=== PATIENT | female | born 1930 | race Caucasian/White ===

== ENCOUNTER 2019-08-23 10:59 | Observation (INO) ==
[2019-08-23] MEDS ORDERED: Ipratropium/Albuterol Neb 3 ML IH ONE (11:14)
[2019-08-23 11:51] LABS: Bilirubin,Urine Negative (Negative); Blood,Urine Large (Negative); Clarity,Urine Turbid (Clear); Color,Urine Yellow (Yellow); Glucose,Urine (UA) Normal (Normal); Ketones,Urine Negative (Negative); Leukocyte Esterase,Urine Large (Negative); Nitrite,Urine Negative (Negative); Protein,Urine 100 mg/dL (Neg-Trace); Urobilinogen,Urine Normal (Normal)
[2019-08-23 11:53] LABS: Bacteria,Urine Many per hpf (None-Few); Hyaline Casts,Urine None Seen per lpf (None-Few); RBC,Urine 30-50 per hpf (0-3); Squamous Epithelial Cell,Urine Moderate per lpf (None-Few); WBC,Urine TNTC per hpf (0-3)
[2019-08-23 11:58] LABS: Bilirubin,Urine Negative (Negative); Blood,Urine Moderate (Negative); Clarity,Urine Turbid (Clear); Color,Urine Yellow (Yellow); Glucose,Urine (UA) Normal (Normal); Ketones,Urine Negative (Negative); Leukocyte Esterase,Urine Large (Negative); Nitrite,Urine Negative (Negative); Protein,Urine 100 mg/dL (Neg-Trace); Specific Gravity,Urine 1.021 (1.010-1.025); Urobilinogen,Urine Normal (Normal)
[2019-08-23 12:00] LABS: Bacteria,Urine Many per hpf (None-Few); Hyaline Casts,Urine None Seen per lpf (None-Few); RBC,Urine 15-30 per hpf (0-3); Squamous Epithelial Cell,Urine Few per lpf (None-Few); WBC,Urine TNTC per hpf (0-3)
[2019-08-23 12:02] LABS: Basophils % 0.4 %; Eosinophils % 0.3 %; Hematocrit 36.8 % (35.3-44.9); Hemoglobin 11.7 g/dL (11.5-15.4); Immature Granulocytes % 0.6 % (0-4); Lymphocytes # 0.5 K/mcL (0.6-4.6); Lymphocytes % 4.1 %; Mean Corpuscular HGB Conc 31.8 g/dL (31.6-35.5); Mean Corpuscular Hemoglobin 30.2 pg (28.0-33.3); Mean Corpuscular Volume 94.8 fL (83.0-100.0); Mean Platelet Volume 8.9 fL (9.4-12.4); Monocytes # 0.8 K/mcL (0.0-1.3); Platelet Count 265 K/mcL (140-400); Red Blood Count 3.88 M/mcL (3.82-4.97); Red Cell Distribution Width 14.8 % (11.5-14.5); Segmented Neutrophils % 87.6 %; White Blood Count 11.3 K/mcL (4.3-11.1)
[2019-08-23 12:25] LABS: Activated Partial Thrombo Time 30.2 Seconds (26.0-36.0); INR 1.1; Prothrombin Time 12.9 Seconds (9.4-12.1)
[2019-08-23 12:26] LABS: Albumin 3.7 g/dL (3.5-5.7); Albumin/Globulin Ratio 1.2 (1.1-2.2); Bilirubin,Direct 0.1 mg/dL (0.0-0.2); Bilirubin,Indirect 0.5 mg/dL (0.0-1.0); Bilirubin,Total 0.6 mg/dL (0.3-1.0); Calcium 9.2 mg/dL (8.6-10.3); Potassium 3.7 mEq/L (3.5-5.1); Total Protein 6.7 g/dL (6.4-8.9); Troponin I 0.08 ng/mL (< 0.04)
[2019-08-23] MEDS ORDERED: Aspirin 81 MG TAB.CHEW PO STA (12:26)
[2019-08-23] MEDS ORDERED: Isovue-370 500 ML BOTTLE IVP ONE (12:51)
[2019-08-23] MEDS ORDERED: 0.9 % Sodium Chloride 1,000 ML IVC SCH (13:00)
[2019-08-23] MEDS ORDERED: Naloxone 0.4 MG/ML INJ IVP PRN (16:15)
[2019-08-23] MEDS ORDERED: Ondansetron 4 MG/2 ML VIAL IVP PRN (16:15)
[2019-08-23] MEDS ORDERED: Furosemide 40 MG/4 ML VIAL IVP ONE (16:15)
[2019-08-23] MEDS ORDERED: Ipratropium/Albuterol Neb 3 ML IH PRN (17:33)
[2019-08-23] MEDS ORDERED: Azithromycin 500 MG in 0.9 % Sodium Chloride 250 ML IVPB SCH (18:00)
[2019-08-23] MEDS: MethylPREDNISolone 40 MG/ML VIAL IVP SCH (19:14)
[2019-08-23] MEDS: Ipratropium/Albuterol Neb 3 ML IH SCH (22:11)
[2019-08-24] MEDS: Ipratropium/Albuterol Neb 3 ML IH SCH ×3 (03:27→15:13)
[2019-08-24 04:31] LABS: Basophils % 0.1 %; Hematocrit 34.4 % (35.3-44.9); Immature Granulocytes % 0.4 % (0-4); Lymphocytes # 0.3 K/mcL (0.6-4.6); Lymphocytes % 3.7 %; Mean Corpuscular Hemoglobin 30.1 pg (28.0-33.3); Mean Platelet Volume 8.9 fL (9.4-12.4); Monocytes # 0.1 K/mcL (0.0-1.3); Monocytes % 1.2 %; Platelet Count 218 K/mcL (140-400); Red Blood Count 3.66 M/mcL (3.82-4.97); Red Cell Distribution Width 14.5 % (11.5-14.5); Segmented Neutrophils % 94.6 %; White Blood Count 7.4 K/mcL (4.3-11.1)
[2019-08-24 04:51] LABS: Calcium 8.8 mg/dL (8.6-10.3); Potassium 3.8 mEq/L (3.5-5.1)
[2019-08-24] MEDS: MethylPREDNISolone 40 MG/ML VIAL IVP SCH (06:01)
[2019-08-24 13:59] VITALS: BP 143/76
[2019-08-24] MEDS ORDERED: *HR* Heparin 5,000 UNIT/ML VIAL SQ SCH (14:00)
[2019-08-25] MEDS ORDERED: NIFEdipine XL (24 HR) 30 MG TAB.ER.24 PO SCH (09:00)
== END 2019-08-24 17:17 | disposition home health service (06) ==
LOC: 3ANU 10:59 → EMEROOARM 10:59 → SUATTDRO 15:00 → 3ANU 16:09
PROVIDERS: ADMIT Internal Medicine; ATTEND Pharmacist

== ENCOUNTER 2019-08-30 04:55 | Inpatient (IN) ==
[2019-08-30] MEDS ORDERED: Ipratropium/Albuterol Neb 3 ML IH ONE (05:05)
[2019-08-30] MEDS ORDERED: methylPREDNISolone 125 MG/2 ML VIAL IVP ONE (05:05)
[2019-08-30] MEDS ORDERED: *HR* LORazepam 2 MG/ML VIAL IVP ONE (05:32)
[2019-08-30] MEDS ORDERED: Azithromycin 500 MG in 0.9 % Sodium Chloride 250 ML IVPB ONE (05:41)
[2019-08-30] MEDS ORDERED: Piperacillin/Tazobactam 3.375 GM in 0.9 % Sodium Chloride Mini Bag 100 ML IVPB ONE (05:41)
[2019-08-30] MEDS ORDERED: 0.9 % Sodium Chloride 1,000 ML IVC ONE (05:42)
[2019-08-30 06:26] LABS: Basophils % 0.2 %; Eosinophils % 0.3 %; Hematocrit 32.8 % (35.3-44.9); Hemoglobin 10.3 g/dL (11.5-15.4); Immature Granulocytes % 0.3 % (0-4); Lymphocytes # 1.1 K/mcL (0.6-4.6); Lymphocytes % 9.1 %; Mean Corpuscular HGB Conc 31.4 g/dL (31.6-35.5); Mean Corpuscular Hemoglobin 30.8 pg (28.0-33.3); Mean Corpuscular Volume 98.2 fL (83.0-100.0); Neutrophils # 9.9 K/mcL (1.6-8.9); Platelet Count 200 K/mcL (140-400); Red Blood Count 3.34 M/mcL (3.82-4.97); Red Cell Distribution Width 14.6 % (11.5-14.5); Segmented Neutrophils % 82.1 %
[2019-08-30 06:29] LABS: VBG HCO3 27 mEq/L (21-27); VBG PCO2 43 mmHg (41-51); VBG PO2 219 mmHg (25-50)
[2019-08-30 06:43] LABS: Calcium 8.9 mg/dL (8.6-10.3); Potassium 3.2 mEq/L (3.5-5.1); Troponin I 0.04 ng/mL (< 0.04)
[2019-08-30] MEDS ORDERED: Ondansetron ODT 4 MG TAB.RAPDIS SL PRN ×2 (07:58→15:52)
[2019-08-30] MEDS: Ipratropium/Albuterol Neb 3 ML IH SCH ×5 (09:41→23:40)
[2019-08-30] MEDS ORDERED: NIFEdipine XL (24 HR) 30 MG TAB.ER.24 PO SCH (10:15)
[2019-08-30] MEDS ORDERED: methylPREDNISolone 125 MG/2 ML VIAL IVP SCH (12:00)
[2019-08-30] MEDS ORDERED: Racepinephrine Neb 0.5 ML VIAL IH ONE (12:34)
[2019-08-30 12:37] LABS: ABG Base Excess -1 mEq/L (-2 to 3); ABG HCO3 25 mEq/L (21-27); ABG Oxygen Saturation 98 % (95-98); ABG PCO2 45 mmHg (35-45); ABG PH 7.36 pH Units (7.32-7.45); ABG PO2 116 mmHg (85-104); ABG TCO2 26 mEq/L (20-26)
[2019-08-30] MEDS ORDERED: Piperacillin/Tazobactam 3.375 GM in 0.9 % Sodium Chloride Mini Bag 100 ML IVPB SCH ×2 (16:00)
[2019-08-30] MEDS ORDERED: Albuterol 2.5 MG/3 ML NEBULIZER IH ONE (16:58)
[2019-08-30] MEDS ORDERED: *HR* Propofol 200 MG/20 ML VIAL IVP ONE (17:23)
[2019-08-30] MEDS ORDERED: Lidocaine HCL 4 ML Topical Solution (Laryng-O-Jet Kit Sterile Pak) TP ONE (17:34)
[2019-08-30] MEDS ORDERED: *HR* Succinylcholine 200 MG/10 ML VIAL IVP ONE (17:34)
[2019-08-30] MEDS ORDERED: EPINEPHrine 1 MG/ML VIAL ONE (17:55)
[2019-08-30] MEDS ORDERED: *HR* Heparin 5,000 UNIT/ML VIAL SQ SCH (18:00)
[2019-08-30] MEDS ORDERED: *HR* FentaNYL (PF) 100 MCG/2 ML VIAL ONE (18:00)
[2019-08-30] MEDS ORDERED: *HR* Midazolam HCl 2 MG/2 ML VIAL ONE (18:36)
[2019-08-30] MEDS ORDERED: Lidocaine -MPF 4% 5 ML AMPUL ONE (18:44)
[2019-08-30] MEDS ORDERED: Artificial Tears SOLN 15 ML BOTTLE BOTH EYES PRN (18:58)
[2019-08-30] MEDS ORDERED: Dexmedetomidine HCl 400 MCG/100 ML MLS IVC ONE (19:28)
[2019-08-30] MEDS: methylPREDNISolone 125 MG/2 ML VIAL IVP SCH ×2 (19:31→23:32)
[2019-08-30] MEDS: *HR* Heparin 5,000 UNIT/ML VIAL SQ SCH (19:59)
[2019-08-30] MEDS: Dexmedetomidine HCl 400 MCG/100 ML MLS IVC SCH (20:00)
[2019-08-30] MEDS: Chlorhexidine Rinse 15 ML MOUTHWASH MM SCH (20:07)
[2019-08-30] MEDS: Artificial Tears SOLN 15 ML BOTTLE BOTH EYES SCH ×2 (20:07→23:33)
[2019-08-30] MEDS: Pantoprazole 40 MG VIAL IVP SCH (20:07)
[2019-08-30] MEDS: FentaNYL (PF) 1,000 MCG in 0.9 % Sodium Chloride 80 ML IVC SCH (20:29)
[2019-08-30 20:56] LABS: ABG Base Excess -1 mEq/L (-2 to 3); ABG HCO3 25 mEq/L (21-27); ABG Oxygen Saturation 100 % (95-98); ABG PCO2 45 mmHg (35-45); ABG PH 7.35 pH Units (7.32-7.45); ABG PO2 221 mmHg (85-104); ABG TCO2 26 mEq/L (20-26); Blood Gas Modality ASSIST CONTROL; Blood Gas VT 450 cc
[2019-08-31] MEDS: Piperacillin/Tazobactam 3.375 GM in 0.9 % Sodium Chloride Mini Bag 100 ML IVPB SCH ×4 (02:12→16:32)
[2019-08-31] MEDS: Artificial Tears SOLN 15 ML BOTTLE BOTH EYES SCH ×6 (03:44→23:35)
[2019-08-31] MEDS: Ipratropium/Albuterol Neb 3 ML IH SCH ×6 (03:48→23:31)
[2019-08-31 04:37] LABS: Hematocrit 28.2 % (35.3-44.9); Hemoglobin 8.8 g/dL (11.5-15.4); Immature Granulocytes % 0.5 % (0-4); Lymphocytes # 0.1 K/mcL (0.6-4.6); Lymphocytes % 1.5 %; Mean Corpuscular HGB Conc 31.2 g/dL (31.6-35.5); Mean Corpuscular Hemoglobin 29.4 pg (28.0-33.3); Mean Corpuscular Volume 94.3 fL (83.0-100.0); Mean Platelet Volume 9.1 fL (9.4-12.4); Monocytes # 0.2 K/mcL (0.0-1.3); Monocytes % 2.3 %; Platelet Count 150 K/mcL (140-400); Red Blood Count 2.99 M/mcL (3.82-4.97); Red Cell Distribution Width 14.4 % (11.5-14.5); Segmented Neutrophils % 95.7 %; White Blood Count 8.1 K/mcL (4.3-11.1)
[2019-08-31 04:39] LABS: Neutrophils # 7.8 K/mcL (1.6-8.9)
[2019-08-31 04:51] LABS: ABG Base Excess 1 mEq/L (-2 to 3); ABG HCO3 26 mEq/L (21-27); ABG Oxygen Saturation 99 % (95-98); ABG PCO2 40 mmHg (35-45); ABG PH 7.42 pH Units (7.32-7.45); ABG PO2 125 mmHg (85-104); ABG TCO2 27 mEq/L (20-26); Blood Gas Modality ASSIST CONTROL; Blood Gas VT 450 cc
[2019-08-31 04:54] LABS: Calcium 8.4 mg/dL (8.6-10.3); Magnesium 1.7 mg/dL (1.6-2.6); Phosphorous 3.4 mg/dL (2.7-4.5); Potassium 3.8 mEq/L (3.5-5.1)
[2019-08-31] MEDS: methylPREDNISolone 125 MG/2 ML VIAL IVP SCH (05:10)
[2019-08-31] MEDS: *HR* Heparin 5,000 UNIT/ML VIAL SQ SCH ×2 (05:10→15:21)
[2019-08-31 05:18] LABS: Platelet Estimate Normal (Normal)
[2019-08-31] MEDS: Pantoprazole 40 MG VIAL IVP SCH (06:59)
[2019-08-31] MEDS: Chlorhexidine Rinse 15 ML MOUTHWASH MM SCH ×2 (06:59→20:29)
[2019-08-31] MEDS: NIFEdipine XL (24 HR) 30 MG TAB.ER.24 PO SCH (07:24)
[2019-08-31] MEDS: Dexmedetomidine HCl 400 MCG/100 ML MLS IVC SCH ×3 (07:25→22:18)
[2019-08-31] MEDS ORDERED: Vancomycin 500 MG in 0.9 % Sodium Chloride Mini Bag 100 ML IVPB SCH ×2 (08:00)
[2019-08-31] MEDS: Azithromycin 500 MG in 0.9 % Sodium Chloride 250 ML IVPB SCH (08:22)
[2019-08-31] MEDS ORDERED: Azithromycin 500 MG in 0.9 % Sodium Chloride 250 ML IVPB SCH (09:00)
[2019-08-31] MEDS: FentaNYL (PF) 1,000 MCG in 0.9 % Sodium Chloride 80 ML IVC SCH (09:04)
[2019-08-31] MEDS: Dexamethasone 4 MG/ML VIAL IVP SCH ×3 (09:44→20:29)
[2019-08-31] MEDS ORDERED: D5% in Water 1,000 ML IVC PRN (10:24)
[2019-08-31] MEDS ORDERED: *HR* Dextrose 50 % in Water (Syg) 50 ML SYRINGE IVP PRN (10:24)
[2019-08-31] MEDS: Insulin LISPRO 300 UNITS/3 ML VIAL SQ SCH ×3 (11:27→23:36)
[2019-08-31] MEDS ORDERED: *HR* Midazolam HCl 2 MG/2 ML VIAL IVP PRN ×2 (18:09→18:10)
[2019-08-31] MEDS ORDERED: FENTANYL IVC SCH (23:45)
[2019-08-31] MEDS ORDERED: SODIUM CHLORIDE 0.9% IVC SCH (23:45)
[2019-09-01 00:42] LABS: Acinetobacter baumannii by PCR Not Detected (Not Detect); Candida albicans by PCR Not Detected (Not Detect); Candida glabrata by PCR Not Detected (Not Detect); Candida krusei by PCR Not Detected (Not Detect); Candida parapsilosis by PCR Not Detected (Not Detect); Candida tropicalis by PCR Not Detected (Not Detect); Enterobacter cloacae Cmplx PCR Not Detected (Not Detect); Enterobacteriaceae by PCR Not Detected (Not Detect); Enterococcus by PCR Not Detected (Not Detect); Escherichia coli by PCR Not Detected (Not Detect); Klebsiella oxytoca by PCR Not Detected (Not Detect); Klebsiella pneumoniae by PCR Not Detected (Not Detect); Proteus by PCR Not Detected (Not Detect); Pseudomonas aeruginosa by PCR Not Detected (Not Detect); Serratia marcescens by PCR Not Detected (Not Detect); Staphylococcus aureus by PCR Not Detected (Not Detect); Staphylococcus by PCR Not Detected (Not Detect); Streptococcus agalactiae(B)PCR Not Detected (Not Detect); Streptococcus by PCR Not Detected (Not Detect); Streptococcus pneumoniae PCR Not Detected (Not Detect); Streptococcus pyogenes (A) PCR Not Detected (Not Detect); blaKPC Carbapenem-Resist Gene Not Detected (Not Detect); mecA Methicillin-Resist Gene Not Detected (Not Detect); vanA/B Vancomycin-Resist Genes Not Detected (Not Detect)
[2019-09-01] MEDS ORDERED: Vancomycin 500 MG in 0.9 % Sodium Chloride Mini Bag 100 ML IVPB SCH (01:00)
[2019-09-01] MEDS: Dexamethasone 4 MG/ML VIAL IVP SCH ×4 (03:06→21:08)
[2019-09-01] MEDS: Artificial Tears SOLN 15 ML BOTTLE BOTH EYES SCH ×6 (03:07→21:09)
[2019-09-01] MEDS: Piperacillin/Tazobactam 3.375 GM in 0.9 % Sodium Chloride Mini Bag 100 ML IVPB SCH ×3 (03:07→14:44)
[2019-09-01] MEDS: Dexmedetomidine HCl 400 MCG/100 ML MLS IVC SCH ×4 (03:07→17:17)
[2019-09-01] MEDS: Ipratropium/Albuterol Neb 3 ML IH SCH ×4 (03:26→16:15)
[2019-09-01 05:07] LABS: ABG Base Excess 0 mEq/L (-2 to 3); ABG HCO3 26 mEq/L (21-27); ABG Oxygen Saturation 96 % (95-98); ABG PCO2 49 mmHg (35-45); ABG PH 7.34 pH Units (7.32-7.45); ABG PO2 90 mmHg (85-104); ABG TCO2 28 mEq/L (20-26); Blood Gas Modality AF; Blood Gas VT 380 cc
[2019-09-01] MEDS: Insulin LISPRO 300 UNITS/3 ML VIAL SQ SCH ×3 (05:11→17:18)
[2019-09-01] MEDS: *HR* Heparin 5,000 UNIT/ML VIAL SQ SCH ×2 (05:11→17:04)
[2019-09-01 06:23] LABS: Hematocrit 32.9 % (35.3-44.9); Hemoglobin 10.2 g/dL (11.5-15.4); Immature Granulocytes % 0.5 % (0-4); Lymphocytes # 0.2 K/mcL (0.6-4.6); Lymphocytes % 1.8 %; Mean Corpuscular Hemoglobin 29.9 pg (28.0-33.3); Mean Corpuscular Volume 96.5 fL (83.0-100.0); Monocytes # 0.5 K/mcL (0.0-1.3); Monocytes % 4.6 %; Platelet Count 179 K/mcL (140-400); Red Blood Count 3.41 M/mcL (3.82-4.97); Red Cell Distribution Width 14.4 % (11.5-14.5); Segmented Neutrophils % 93.1 %; White Blood Count 10.5 K/mcL (4.3-11.1)
[2019-09-01 06:30] LABS: INR 1.2; Prothrombin Time 13.5 Seconds (9.4-12.1)
[2019-09-01 06:39] LABS: Neutrophils # 9.8 K/mcL (1.6-8.9)
[2019-09-01 06:49] LABS: Albumin 3.3 g/dL (3.5-5.7); Albumin/Globulin Ratio 1.2 (1.1-2.2); Bilirubin,Total 0.3 mg/dL (0.3-1.0); Globulin 2.7 g/dL (2.4-3.5); Magnesium 2.4 mg/dL (1.6-2.6); Phosphorous 4.2 mg/dL (2.7-4.5)
[2019-09-01 07:10] LABS: Platelet Estimate Normal (Normal)
[2019-09-01] MEDS: NIFEdipine XL (24 HR) 30 MG TAB.ER.24 PO SCH (07:47)
[2019-09-01] MEDS: Azithromycin 500 MG in 0.9 % Sodium Chloride 250 ML IVPB SCH (07:50)
[2019-09-01] MEDS: Chlorhexidine Rinse 15 ML MOUTHWASH MM SCH (07:50)
[2019-09-01] MEDS: Pantoprazole 40 MG VIAL IVP SCH (07:50)
[2019-09-01] MEDS ORDERED: Aminoglycoside Consult 1 EACH MC ONE (09:49)
[2019-09-01] MEDS ORDERED: *HR* FentaNYL (PF) 100 MCG/2 ML VIAL IVP ONE (15:36)
[2019-09-01] MEDS ORDERED: Furosemide 40 MG/4 ML VIAL ONE (17:12)
[2019-09-01] MEDS ORDERED: Furosemide 40 MG/4 ML VIAL IVP ONE (17:12)
[2019-09-01] MEDS ORDERED: Atropine Sulfate 1% 40 DROP/2 ML BOTTLE SL PRN (18:07)
[2019-09-01] MEDS ORDERED: Morphine Sulfate 2 MG/ML SYRINGE IVP PRN (18:11)
[2019-09-01] MEDS ORDERED: *HR* Midazolam HCl 2 MG/2 ML VIAL IVP PRN (18:44)
[2019-09-01] MEDS ORDERED: Artificial Tears SOLN 15 ML BOTTLE BOTH EYES PRN (18:44)
[2019-09-01] MEDS ORDERED: Ondansetron ODT 4 MG TAB.RAPDIS SL PRN (18:44)
[2019-09-01] MEDS ORDERED: Chlorhexidine Rinse 15 ML MOUTHWASH MM SCH (21:00)
[2019-09-01] MEDS: Morphine Sulfate 2 MG/ML SYRINGE IVP PRN ×2 (21:15→23:43)
[2019-09-02] MEDS: Atropine Sulfate 1% 40 DROP/2 ML BOTTLE SL PRN ×2 (00:51→04:05)
[2019-09-02] MEDS ORDERED: *HR* LORazepam 0.5 MG TABLET PO PRN (02:03)
[2019-09-02] MEDS: Morphine Sulfate 2 MG/ML SYRINGE IVP PRN ×4 (02:15→14:22)
[2019-09-02] MEDS: Artificial Tears SOLN 15 ML BOTTLE BOTH EYES SCH ×2 (03:54→09:35)
[2019-09-02] MEDS: Dexamethasone 4 MG/ML VIAL IVP SCH ×2 (04:02→10:34)
[2019-09-02] MEDS ORDERED: Artificial Tears SOLN 15 ML BOTTLE BOTH EYES PRN (08:35)
[2019-09-02] MEDS ORDERED: Glycopyrrolate 0.2 MG/ML VIAL IVP ONE (13:21)
[2019-09-02] MEDS ORDERED: Scopolamine Patch 1.5 MG PATCH.TD72 TD SCH (13:30)
[2019-09-02] MEDS: Morphine Sulfate Oral CONC 10 MG/0.5 ML ORAL.SYG SL PRN (13:37)
[2019-09-02] MEDS: *HR* LORazepam Oral Conc 2 MG/ML PO PRN (14:23)
[2019-09-03] MEDS: Morphine Sulfate Oral CONC 10 MG/0.5 ML ORAL.SYG SL PRN ×3 (01:16→09:23)
[2019-09-03] MEDS: *HR* LORazepam Oral Conc 2 MG/ML PO PRN (05:30)
[2019-09-03] MEDS: Atropine Sulfate 1% 40 DROP/2 ML BOTTLE SL PRN ×2 (05:38→09:22)
[2019-09-03] MEDS ORDERED: Haloperidol Oral Conc 10 MG/5 ML UDC PO PRN (12:58)
[2019-09-03] MEDS ORDERED: *HR* LORazepam Oral Conc 2 MG/ML PO PRN (12:59)
[2019-09-04] MEDS: Morphine Sulfate Oral CONC 10 MG/0.5 ML ORAL.SYG SL PRN (00:47)
[2019-09-04] MEDS ORDERED: Haloperidol Oral Conc 10 MG/5 ML UDC PO PRN (10:44)
[2019-09-04] MEDS ORDERED: Morphine Sulfate Oral CONC 10 MG/0.5 ML ORAL.SYG SL PRN (10:45)
[2019-09-04] MEDS ORDERED: Ipratropium/Albuterol Neb 3 ML IH PRN (10:52)
[2019-09-04] MEDS ORDERED: *HR* LORazepam Oral Conc 2 MG/ML PO PRN (10:53)
[2019-09-05 07:19] VITALS: BP 160/91
== END 2019-09-05 12:54 | disposition hospice, home (50) | DRG 853 ==
LOC: 2NENU 04:55 → EMEROOARM 04:55 → 2NENU 10:38 → ICNU 14:19 → SUATTDRO 17:33 → 2ANU 09-01 20:36
PROVIDERS: ADMIT Internal Medicine; ATTEND Internal Medicine
PROC: ENDOBRF (2019-08-30 17:30)

== ENCOUNTER 2019-09-30 12:38 | Inpatient (IN) ==
[2019-09-30] MEDS ORDERED: Bisacodyl 10 MG RECTAL SUPPOSITORY RC PRN (13:25)
[2019-09-30] MEDS ORDERED: polyethylene glycoL 3350 17 GM POWD.PACK PO PRN (13:35)
[2019-09-30] MEDS ORDERED: Ondansetron ODT 4 MG TAB.RAPDIS SL PRN (13:37)
[2019-09-30] MEDS ORDERED: Ipratropium/Albuterol Neb 3 ML IH PRN (13:38)
[2019-09-30] MEDS ORDERED: Ibuprofen 400 MG TABLET PO PRN (13:40)
[2019-09-30] MEDS ORDERED: Haloperidol Oral Conc 10 MG/5 ML UDC PO PRN (15:26)
[2019-09-30] MEDS ORDERED: Hyoscyamine SL 0.125 MG TAB.SUBL SL PRN (15:28)
[2019-09-30] MEDS: Morphine Sulfate Oral CONC 10 MG/0.5 ML ORAL.SYG SL PRN ×2 (16:49→22:45)
[2019-09-30] MEDS: Ipratropium/Albuterol Neb 3 ML IH SCH ×2 (17:03→21:58)
[2019-09-30] MEDS: Budesonide/Formoterol 80/4.5 1 PUFF INH IH SCH (21:58)
[2019-10-01] MEDS: *HR* LORazepam Oral Conc 2 MG/ML SL PRN ×2 (00:16→08:01)
[2019-10-01] MEDS: Ipratropium/Albuterol Neb 3 ML IH SCH ×2 (04:00→10:39)
[2019-10-01] MEDS: Morphine Sulfate Oral CONC 10 MG/0.5 ML ORAL.SYG SL PRN (04:10)
[2019-10-01 07:47] VITALS: BP 145/81
[2019-10-01] MEDS ORDERED: Multivit/Ca/Min/Fe/FA 1 TAB TABLET PO SCH (09:00)
[2019-10-01] MEDS ORDERED: NIFEdipine XL (24 HR) 30 MG TAB.ER.24 PO SCH (09:00)
[2019-10-01] MEDS ORDERED: Cyanocobalamin (B-12) 1,000 MCG TABLET PO SCH (09:00)
[2019-10-01] MEDS: Budesonide/Formoterol 80/4.5 1 PUFF INH IH SCH (10:39)
== END 2019-10-01 08:33 | disposition expired | DRG 951 ==
LOC: 2ANU 14:38
PROVIDERS: ADMIT Internal Medicine Hospice and Palliative Medicine; ATTEND Internal Medicine Hospice and Palliative Medicine